=== PATIENT | female | born 1950 | race Caucasian/White ===

== ENCOUNTER → 2017-10-13 | Outpatient (CLI) | payer MEDICARE | END | disposition home or self-care (01) | LOC: LABWHC1 11:58 | PROVIDERS: ATTEND Otolaryngology | DX: M35.9 Systemic involvement of connective tissue, unspecified (principal) | CPT/HCPCS: 36415 ==

== ENCOUNTER → 2017-11-22 | Outpatient (CLI) | payer MEDICARE ==
[2017-11-22 18:26] LABS: Blood Urea Nitrogen 16 mg/dL (7-17)
--- NOTE | 2017-11-23 00:39 | MR ---
EXAMINATION TYPE: MR brain and iac wo/w con DATE OF EXAM: 11/22/2017 COMPARISON: NONE HISTORY: Lt sided hearing loss TECHNIQUE: Multiplanar, multisequence images of the brain and brainstem is performed without and with IV contras t, utilizing 5.5 mL intravenous Gadavist . FINDINGS: There is mild cerebral cortical atrophy. There is no mass effect nor midline shift. There is no sign of intracranial hemorrhage. There is mucosal thickening in the maxillary sinuses. There are scattered foci up to 5 mm of increased signal in the white matter of both cerebral hemispheres. Total number i s approximately 5. The corpus callosum appears intact. The internal auditory canals appear normal. Ac oustic and vestibular nerves appear normal. There is no evidence of cerebellopontine angle mass. I se e no evidence of bony destructive process involving the temporal bones. I see no pathologic enhanceme nt. Cerebellum appears normal. There is normal contrast opacification of the venous sinuses. Sella tu rcica appears normal. There is no evidence of a sellar mass. Pituitary stalk is in the midline. Optic chiasm appears normal. IMPRESSION: There are scattered small white matter high signal foci that could relate to foci of micr ovascular ischemia. I do not suspect demyelinating disease. Negative MR scan of the internal auditory canals. I do not see a cause for hearing loss.
== END | disposition home or self-care (01) ==
LOC: RADMRIMAIN 17:48
PROVIDERS: ATTEND Otolaryngology
DX: R93.0 Abnormal findings on diagnostic imaging of skull and head, not elsewhere classified (principal); D47.2 Monoclonal gammopathy; I67.89 Other cerebrovascular disease
CPT/HCPCS: 82565; 84520; 70553; 36415; A9581